=== PATIENT | male | born 1955 | race Caucasian/White ===

== ENCOUNTER 2024-05-18 16:12 | Outpatient (CLI) | payer MEDICARE | END 2024-05-18 16:13 | disposition home or self-care (01) | LOC: BICRAD 16:12 | PROVIDERS: ATTEND Internal Medicine Rheumatology | DX: M54.2 Cervicalgia (principal); M47.812 Spondylosis without myelopathy or radiculopathy, cervical region | CPT/HCPCS: 72050 ==

== ENCOUNTER 2025-04-11 15:33 | Emergency (ER) | payer MEDICARE, OTHER ==
[~2025-04-11 15:33] MED LIST: Iopamidol-370 76% 500 ML MDV (1 ML CHARGE) ONE
[2025-04-11 16:31] LABS: #Basophils 0.03 10x3/uL (0.0-0.2); #Eosinophils 0.06 10x3/uL (0.0-0.7); #Monocytes 1.01 10x3/uL (0.11-0.59); #Neutrophils 5.15 10x3/uL (1.40-6.50); %Basophils 0.4 % (0.0-1.0); %Eosinophils 0.8 % (0.0-10.0); %Lymphocytes 11.6 % (21.0-51.0); %Monocytes 14.1 % (0.0-10.0); %Neutrophils 72.3 % (42.0-75.0); Hematocrit 38.9 % (42.0-52.0); Hemoglobin 12.4 g/dL (14.0-18.0); Mean Corpuscular Hemoglobin 30.8 pg (27.0-31.0); Mean Corpuscular Volume 96.8 fL (78.0-98.0); Platelet Count 223 10x3/uL (130-400); Red Blood Cell (RBC) Count 4.02 mill/uL (4.70-6.10); White Blood Cell (WBC) Count 7.14 10x3/uL (4.8-10.8)
[2025-04-11] MEDS ORDERED: Acetaminophen 500 MG TAB ONE (16:38)
[2025-04-11 16:48] LABS: INR-International Normal Ratio 1.1; PTT 30.8 sec (22.9-36.1); Prothrombin Time 14.2 sec (12.0-14.7)
[2025-04-11 17:01] LABS: ALT (SGPT) 35 U/L (Less than 45); AST (SGOT) 50 U/L (11-34); Albumin 3.7 g/dL (3.1-4.5); Alkaline Phosphatase 85 U/L (40-110); Anion Gap 19 mmol/L (10-20); BUN (Urea Nitrogen) 14 mg/dL (8.4-25.7); Bilirubin, Total 0.8 mg/dL (0.3-1.2); Calc. Creatinine Clearance 0 mL/min (70-130); Calcium 9.3 mg/dL (7.8-10.44); Carbon Dioxide 22 mmol/L (23-31); Chloride 107 mmol/L (98-107); Globulin 2.8 g/dL (2.4-3.5); Glucose 85 mg/dL (80-115); Magnesium 2.1 mg/dL (1.6-2.6); Potassium 4.1 mmol/L (3.5-5.1); Sodium 144 mmol/L (136-145)
[2025-04-11] MEDS ORDERED: Heparin 5,000 UNITS/ML VIAL ONE (18:27)
[2025-04-11] MEDS ORDERED: Ondansetron PF 4 MG/2 ML Vial ONE (18:39)
[2025-04-12 00:55] LABS: INR-International Normal Ratio 1.2; Prothrombin Time 14.9 sec (12.0-14.7)
[2025-04-12 01:04] LABS: PTT 155.7 sec (22.9-36.1)
== END 2025-04-12 02:11 | disposition short-term general hospital (02) ==
LOC: ERS 15:33
DX: I82.422 Acute embolism and thrombosis of left iliac vein (principal); I82.412 Acute embolism and thrombosis of left femoral vein; I10 Essential (primary) hypertension; I25.10 Atherosclerotic heart disease of native coronary artery without angina pectoris; Z55.6 Problems related to health literacy; Z79.82 Long term (current) use of aspirin; Z79.899 Other long term (current) drug therapy; Z95.5 Presence of coronary angioplasty implant and graft
CPT/HCPCS: 70450; 75635; 80053; 83735; 83880; 84484; 85025; 85610 ×2; 85730 ×2; 93005; 93971; 96374; 96375; 99285; J1644 ×2; J2270; J2405; Q9967